=== PATIENT | female | born 1955 | race Caucasian/White ===

== ENCOUNTER 2024-01-25 13:12 | Emergency (ER) | payer MEDICARE, SELFPAY ==
[2024-01-25] VITALS (9 sets, daily range): BP systolic 86–152; BP diastolic 46–98; PULSE 69–75; RESP 16–21; TEMP 36.2–36.3; O2SAT 75–99; BMI 32.8
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
[2024-01-25] MEDS: Ondansetron 4 MG/2 ML Vial IV (14:18)
[2024-01-25] MEDS: Morphine 4 MG/ML Syringe IV (14:18)
[2024-01-25] MEDS: 0.9% Normal Saline (1000mL) 1,000 ML 999 ML IV (15:55)
[2024-01-25] MEDS: fentaNYL 100 MCG/2 ML Ampul 25 MCG IV (15:55)
--- NOTE | 2024-01-25 16:09 | NURSING ---
CALLED [facility]. WILL BE FLOWN
[2024-01-25] MEDS: TRANEXAMIC ACID 1,000 MG in 0.9% Normal Saline (100mL Bag) 100 ML 440 MG IV (16:15)
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
== END 2024-01-25 17:20 | disposition short-term general hospital (02) ==
PROVIDERS: Emergency Provider Emergency Medicine; Visit Provider Emergency Medicine
DX: S32.021A Stable burst fracture of second lumbar vertebra, initial encounter for closed fracture (principal); S81.812A Laceration without foreign body, left lower leg, initial encounter; S36.892A Contusion of other intra-abdominal organs, initial encounter; I95.9 Hypotension, unspecified; V43.92XA Unspecified car occupant injured in collision with other type car in traffic accident, initial encounter
CPT/HCPCS: 70450; 71250; 72125; 72128; 72131; 73590; 74176; 86850; 86900; 86901; 86920; 96365; 96375; 99284; J7030; J7040; P9016; A4216; J2405